=== PATIENT | male | born 1940 | race Caucasian/White ===

== ENCOUNTER → 2017-05-05 | Outpatient (CLI) | payer MEDICARE, BC, OTHER ==
[2017-05-05 10:39] LABS: ALANINE AMINOTRANSFERASE 25 U/L (21-72); ALBUMIN 4.1 g/dL (3.5-5.0); ALKALINE PHOSPHATASE 78 U/L (38-126); ASPARTATE AMINO TRANSFERASE 20 U/L (17-59); BILIRUBIN,DIRECT 0.4 mg/dL (0.0-0.4); BILIRUBIN,TOTAL 0.8 mg/dL (0.2-1.3); CHOLESTEROL 156.56 mg/dL (0-200); Direct HDL 46 mg/dL (>40); TOTAL PROTEIN 6.5 g/dL (6.3-8.2); TRIGLYCERIDES 131 mg/dL (<150)
[2017-05-05 10:50] LABS: DIRECT LDL 88 mg/dL (<100)
== END ==
LOC: OD 09:32
PROVIDERS: ATTEND Specialist
DX: E11.9 Type 2 diabetes mellitus without complications (principal); E78.4 Other hyperlipidemia; I25.10 Atherosclerotic heart disease of native coronary artery without angina pectoris; I10 Essential (primary) hypertension; I34.1 Nonrheumatic mitral (valve) prolapse; I35.1 Nonrheumatic aortic (valve) insufficiency; I36.1 Nonrheumatic tricuspid (valve) insufficiency; I73.9 Peripheral vascular disease, unspecified; G47.30 Sleep apnea, unspecified; R09.89 Other specified symptoms and signs involving the circulatory and respiratory systems; Z79.899 Other long term (current) drug therapy
CPT/HCPCS: 36415; 80061; 80076; 83036

== ENCOUNTER → 2017-07-21 | Outpatient (CLI) | payer MEDICARE, BC, OTHER | LOC: SP 13:09 | PROVIDERS: ATTEND Specialist | DX: I25.10 Atherosclerotic heart disease of native coronary artery without angina pectoris (principal) | CPT/HCPCS: 93306 ==

== ENCOUNTER → 2017-08-03 | Outpatient (CLI) | payer MEDICARE, BC, OTHER ==
[~2017-08-03] MED LIST: REGADENOSON INJ 0.4 MG/5 ML DISP.SYRIN IV ONE
--- NOTE | 2017-08-06 14:20 | DRAGON STRESS TEST REPORT ---
Intravenous Lexiscan Cardiolite stress test using single photon emmision computerized tomography. Date of procedure: 08/03/2017. Ordering Provider: Dr. Talita Hung. Patient's status: Out Patient Indication: Coronary artery disease by history.. Coronary risk factors: Age, diabetes mellitus, hypertension, and dyslipidemia. Resting EKG: Sinus Rhythm. No acute changes. Stress EKG: No changes of ischemia. Reason for termination: Protocol. Conclusions: Normal EKG and hemodynamic response to IV Lexiscan. Nuclear data: At rest the patient was given 14.38 millicuries of technetium 99m sestamibi injected intravenously. As per protocol rest non gated SPECT images were obtained. Subsequently the patient was given intravenous Lexiscan at a dose of 0.4 mg in 5 mL intravenously, followed by flush with normal saline. Subsequently the stress dose of 42.0 millicuries of technetium 99m sestamibi was injected intravenously. As per protocol stress gated images were obtained. Nuclear interpretation: Review of images showed that there was a perfusion defect in both the stress and rest images involving the basal inferior wall. This area had normal motion contraction and thickening by gated study hence this is deemed to be soft tissue attenuation artifact of the basal inferior wall. The rest of the segments of the myocardium had normal perfusion at rest, and normal perfusion post stress with IV Lexiscan. All segments of the myocardium had normal motion, contraction, and thickening by gated study. T. I D. ratio was normal at 1.18. Computer read rest, and stress left ventricular ejection fraction were 64 %, and 62 %, respectively. Conclusion: 1. There is no scintigraphic evidence of Lexiscan induced myocardial ischemia. 2. There is no scintigraphic evidence of myocardial infarction/scar. 3. There is soft tissue attenuation artifact involving the basal inferior wall. Recommendations: Aggressive risk factor modification, and treating the underlying co- morbidities. MTDD
== END ==
LOC: RAD 07:16 → MERGE 07:45
PROVIDERS: ATTEND Specialist
DX: I25.10 Atherosclerotic heart disease of native coronary artery without angina pectoris (principal)
CPT/HCPCS: 93017; 78452; A9500; J2785; Q9969

== ENCOUNTER 2018-02-20 10:22 | Inpatient (IN) | payer MEDICARE, BC, OTHER ==
[2018-02-20 12:20] LABS: HEMATOCRIT 40.1 % (37.9-51.0); HEMOGLOBIN 13.4 g/dL (13.5-17.0); MEAN CORPUSCULAR HEMOGLOBIN 30.9 pg (27.0-33.4); MEAN CORPUSCULAR HGB CONC 33.5 g/dL (32.0-36.0); MEAN CORPUSCULAR VOLUME 92 fl (80-97); PLATELET COUNT 188 10^3/uL (150-450); RED BLOOD COUNT 4.34 10^6/uL (4.35-5.55); RED CELL DISTRIBUTION WIDTH 14.8 % (11.5-14.0)
[2018-02-20] MEDS ORDERED: DEXTROSE 40% GEL 15 GM TUBE ONE (12:38)
[2018-02-20 12:48] LABS: ALANINE AMINOTRANSFERASE 29 U/L (21-72); ALBUMIN 3.7 g/dL (3.5-5.0); ALKALINE PHOSPHATASE 54 U/L (38-126); ANION GAP 12 (5-19); ASPARTATE AMINO TRANSFERASE 31 U/L (17-59); BILIRUBIN,DIRECT 0.4 mg/dL (0.0-0.4); BILIRUBIN,TOTAL 0.8 mg/dL (0.2-1.3); BLOOD UREA NITROGEN 47 mg/dL (7-20); CALCIUM 8.6 mg/dL (8.4-10.2); CARBON DIOXIDE 26 mmol/L (22-30); CHLORIDE 97 mmol/L (98-107); GLUCOSE 70 mg/dL (75-110); POTASSIUM 4.3 mmol/L (3.6-5.0); SODIUM 134.7 mmol/L (137-145); TOTAL PROTEIN 6.5 g/dL (6.3-8.2)
--- NOTE | 2018-02-20 13:32 | RADIOLOGY REPORT (SQ) ---
EXAM DESCRIPTION: CT ABD/PELVIS NO ORAL OR IV COMPLETED DATE/TIME: 02/20/2018 1:08 pm REASON FOR STUDY: FEVER,DM COMPARISON: None. TECHNIQUE: CT scan of the abdomen and pelvis performed without intravenous or oral contrast. Images reviewed with lung, soft tissue, and bone windows. Reconstructed coronal and sagittal MPR images revi ewed. All images stored on PACS. All CT scanners at this facility use dose modulation, iterative reconstruction, and/or weight based d osing when appropriate to reduce radiation dose to as low as reasonably achievable (ALARA). [facility]: Dose Right [facility]: CareDose [facility]: Dose Right [facility]: Teradose 4D [facility]: Smart [employer] RADIATION DOSE: CT Rad equipment meets quality standard of care and radiation dose reduction techniq ues were employed. CTDIvol: 12.3 mGy. DLP: 682 mGy-cm.mGy. LIMITATIONS: None. FINDINGS: LOWER CHEST: Segmental airspace disease in the right middle lobe. Cardiomegaly. Hiatal h ernia. NON-CONTRASTED LIVER, SPLEEN, ADRENALS: Evaluation limited by lack of IV contrast. No identified sign ificant masses. PANCREAS: No masses. No peripancreatic inflammatory changes. GALLBLADDER: Surgically absent. RIGHT KIDNEY AND URETER: No suspicious masses. Assessment limited by lack of IV contrast. No signif icant calcifications. No hydronephrosis or hydroureter. LEFT KIDNEY AND URETER: No suspicious masses. Assessment limited by lack of IV contrast. No signifi cant calcifications. No hydronephrosis or hydroureter. AORTA AND RETROPERITONEUM: No aneurysm. No retroperitoneal masses or adenopathy. BOWEL AND PERITONEAL CAVITY: Diverticulosis descending and sigmoid colon. No obvious masses or infla mmatory changes. No free fluid. APPENDIX: Normal. PELVIS, BLADDER, AND ABDOMINAL WALL:No abnormal masses. No free fluid. Bladder normal. BONES: No acute findings. OTHER: No other significant finding. IMPRESSION: 1. No acute findings in the abdomen or pelvis 2. Right middle lobe pneumonia. COMMENT: Quality ID # [id number]: Final reports with documentation of one or more dose reduction techniques (e.g., Automated exposure control, adjustment of the mA and/or kV according to patient size, use of iterative reconstruction technique) TECHNICAL DOCUMENTATION: JOB ID: [id number]- All Rights Reserved Reading location - IP/workstation name: [email or web address]
[2018-02-20] MEDS: LEVOFLOXACIN 750 MG/D5W RTU 750 MG/150 ML RTUPB IV SCH (13:40)
--- NOTE | 2018-02-20 13:50 | RADIOLOGY REPORT (SQ) ---
EXAM DESCRIPTION: CHEST 2 VIEWS COMPLETED DATE/TIME: 02/20/2018 1:25 pm REASON FOR STUDY: FEVER,DM COMPARISON: 08/13/2018 EXAM PARAMETERS: NUMBER OF VIEWS: two views TECHNIQUE: Digital Frontal and Lateral radiographic views of the chest acquired. RADIATION DOSE: NA LIMITATIONS: none FINDINGS: LUNGS AND PLEURA: Patchy airspace disease in the right upper lobe, adjacent and superior to the fissure. Considerations for this finding includes pneumonic infiltrate. Minimal left base sc ar atelectasis. No pneumothorax or pleural effusion. MEDIASTINUM AND HILAR STRUCTURES: No masses or contour abnormalities. HEART AND VASCULAR STRUCTURES: Heart normal size. No evidence for failure. BONES: No acute findings. HARDWARE: None in the chest. OTHER: No other significant finding. IMPRESSION: 1 Patchy airspace disease in the right upper lobe, suggest pneumonic infiltrate. Correl ation and follow-up examination to document for interval resolution. TECHNICAL DOCUMENTATION: JOB ID: [id number] [employer]- All Rights Reserved Reading location - IP/workstation name: [email or web address]
[2018-02-20 13:59] LABS: APPEARANCE,URINE SLIGHTLY-CLOUDY; BILIRUBIN,URINE NEGATIVE (NEGATIVE); COLOR,URINE YELLOW; GLUCOSE, URINE NEGATIVE (NEGATIVE); KETONES,URINE NEGATIVE (NEGATIVE); LEUKOCYTE ESTERASE,URINE NEGATIVE (NEGATIVE); NITRITE,URINE NEGATIVE (NEGATIVE); PROTEIN,URINE 30 mg/dL (NEGATIVE); URINE SPECIFIC GRAVITY 1.021
[2018-02-20] MEDS ORDERED: MICARDIS HCT PO SCH (16:15)
[2018-02-20] MEDS: ACETAMINOPHEN 325 MG TABLET PO PRN (16:43)
[2018-02-20] MEDS ORDERED: NORMAL SALINE 1000 ML 1,000 ML IV PRN ×2 (16:56→19:12)
[2018-02-20] MEDS ORDERED: METFORMIN HCL PO SCH (17:00)
[2018-02-20] MEDS ORDERED: GLYBURIDE PO SCH (17:00)
[2018-02-20] MEDS: MONTELUKAST SODIUM 10 MG TABLET PO SCH (17:22)
[2018-02-20] MEDS: METFORMIN HCL 500 MG TABLET PO SCH (17:22)
[2018-02-20] MEDS: GLYBURIDE 2.5 MG TABLET PO SCH (17:22)
[2018-02-20] MEDS ORDERED: ALLOPURINOL 300 MG TABLET PO ONE (17:30)
[2018-02-20] MEDS ORDERED: LOSARTAN POTASSIUM 50 MG TABLET PO ONE (17:30)
[2018-02-20] MEDS ORDERED: ASPIRIN 81 MG TABLET, CHEWABLE PO ONE (17:30)
[2018-02-20] MEDS ORDERED: PIOGLITAZONE HCL 15 MG TABLET PO ONE (17:30)
[2018-02-20] MEDS ORDERED: HYDROCHLOROTHIAZIDE 12.5 MG CAPSULE PO ONE (17:30)
[2018-02-20 18:49] LABS: ARTERIAL BLOOD BASE EXCESS 1.9 mmol/L; ARTERIAL BLOOD H2CO3 0.92 mmol/L (1.05-1.35); ARTERIAL BLOOD HCO3 24.1 mmol/L (20-26); ARTERIAL BLOOD O2 SATURATION 94.8 % (94-98); ARTERIAL BLOOD PCO2 30.5 mmHg (35-45); ARTERIAL BLOOD PH 7.52 (7.35-7.45); ARTERIAL BLOOD PO2 65.1 mmHg (80-100)
[2018-02-20 18:50] LABS: ARTERIAL BLOOD FIO2 ROOM AIR
--- NOTE | 2018-02-20 19:15 | PDOC H&P ---
History of Present Illness Admission Date/PCP: 02/20/18 10:25 ROSAURA CHAMBERLAIN MD History of Present Illness: TEO BUTLER is a 77 year old male, He has a history of type 2 diabetes mellitus he came to the office this morning with his daughter which is very unusual, he normally come to the office by himself for follow-up, he came for evaluation of malaise, fever, confusion, the daughter stated he had his symptoms for the last 6-7 days, he has not been eating nor drinking, in the office he was evaluated he was found to be febrile with 101 temperature, because of his age and also risk factors, he was admitted directly from the office to the hospital for further evaluation. A chest x-ray was done it showed patchy airspace disease in the right upper lobe, adjacent and superior to the fissure suggestive of pneumonia he has a dry cough, when he came to the office he had a fever with 101 temperature, it was apparent that he has an infection but the source was not clear part of the evaluation also included a CAT scan of the abdomen and pelvis without contrast no acute intra-abdominal pathology was found but showed patchy airspace disease in the right middle lobe consistent with pneumonia. He also show acute kidney injury, serum creatinine is 1.5 patientI have no chronic kidney disease. The CRP was 165 consistent with acute inhibitory response the arterial blood gas on room air showed pH 7.5 , PCO2 30.5, PO2 65 this is consistent with respiratory alkalosis Past Medical History Cardiac Medical History: Reports: Hyperlipidema, Hypertension Endocrine Medical History: Reports: Diabetes Mellitus Type 2 Social History Smoking Status: Never Smoker Frequency of Alcohol Use: None Hx Recreational Drug Use: No Drugs: None Hx Prescription Drug Abuse: No Family History Family History: Reviewed & Not Pertinent Parental Family History Reviewed: Yes Children Family History Reviewed: Yes Sibling(s) Family History Reviewed.: Yes Medication/Allergy Home Medications: Allopurinol [Zyloprim 300 mg Tablet] 300 mg PO DAILY 02/20/18 Aspirin [Aspirin 81 mg Chewable Tablet] 81 mg PO DAILY 02/20/18 Atorvastatin Calcium [Lipitor 80 mg Tablet] 80 mg PO QHS 02/20/18 Carvedilol [Coreg 25 mg Tablet] 25 mg PO Q12 02/20/18 Glyburide/Metformin HCl [Glyburide-Metformin 2.5-500 mg] 1 tab PO WSUPPER 06/18/ 18 Micardis Hct 80-12.5mg 1 tab PO DAILY 02/20/18 Montelukast Sodium [Singulair 10 mg Tablet] 10 mg PO QPM 02/20/18 Pantoprazole Sodium [Protonix] 40 mg PO DAILY 02/20/18 Pioglitazone HCl [Actos 15 mg Tablet] 15 mg PO DAILY 02/20/18 Allergies/Adverse Reactions: No Known Allergies Allergy (Verified 08/13/14 19:08) Review of Systems Constitutional: PRESENT: fever(s) Eyes: ABSENT: visual disturbances Ears: ABSENT: hearing changes Cardiovascular: ABSENT: chest pain, dyspnea on exertion, edema, orthropnea, palpitations Respiratory: ABSENT: cough, hemoptysis Gastrointestinal: ABSENT: abdominal pain, constipation, diarrhea, hematemesis, hematochezia, nausea, vomiting Genitourinary: ABSENT: dysuria, hematuria Musculoskeletal: ABSENT: joint swelling Integumentary: ABSENT: rash, wounds Neurological: PRESENT: confusion. ABSENT: abnormal gait, abnormal speech, dizziness, focal weakness, syncope Psychiatric: ABSENT: anxiety, depression, homidical ideation, suicidal ideation Endocrine: ABSENT: cold intolerance, heat intolerance, menstrual abnormalities, polydipsia, polyuria Hematologic/Lymphatic: ABSENT: easy bleeding, easy bruising, lymphadenopathy Physical Exam Vital Signs: Temp Pulse Resp BP Pulse Ox 99.7 F 61 18 124/50 L 92 02/20/18 18:12 02/20/18 16:13 02/20/18 16:13 02/20/18 16:13 02/20/18 16:13 Intake & Output 02/19/18 02/20/18 02/21/18 06:59 06:59 06:59 Intake Total 1066 Output Total 200 Balance 866 Weight 91.3 kg General appearance: PRESENT: mild distress Head exam: PRESENT: atraumatic, normocephalic Eye exam: PRESENT: conjunctiva pink, EOMI, PERRLA Ear exam: PRESENT: normal external ear exam Mouth exam: PRESENT: moist, tongue midline Neck exam: PRESENT: full ROM Respiratory exam: PRESENT: rhonchi Cardiovascular exam: PRESENT: RRR, +S1, +S2 Vascular exam: PRESENT: normal capillary refill GI/Abdominal exam: PRESENT: normal bowel sounds, soft Rectal exam: PRESENT: deferred Neurological exam: PRESENT: alert, awake, oriented to person, oriented to place , oriented to time, oriented to situation, CN II-XII grossly intact Psychiatric exam: PRESENT: appropriate affect, normal mood Skin exam: PRESENT: dry, intact, warm. ABSENT: cyanosis, rash Results Laboratory Results: 02/20/18 11:26 02/20/18 11:26 02/20/18 02/20/18 02/20/18 11:26 11:26 13:26 WBC 8.0 RBC 4.34 L Hgb 13.4 L Hct 40.1 MCV 92 MCH 30.9 MCHC 33.5 RDW 14.8 H Plt Count 188 Carbonic Acid HCO3/H2CO3 Ratio ABG pH ABG pCO2 ABG pO2 ABG HCO3 ABG O2 Saturation ABG Base Excess FiO2 Sodium 134.7 L Potassium 4.3 Chloride 97 L Carbon Dioxide 26 Anion Gap 12 BUN 47 H Creatinine 1.52 H Est GFR ( Amer) 54 L Est GFR (Non-Af Amer) 45 L Glucose 70 L Calcium 8.6 Total Bilirubin 0.8 AST 31 ALT 29 Alkaline Phosphatase 54 C-Reactive Protein Total Protein 6.5 Albumin 3.7 Urine Color YELLOW Urine Appearance SLIGHTLY-CLOUDY Urine pH 5.0 Ur Specific [place] 1.021 Urine Protein 30 H Urine Glucose (UA) NEGATIVE Urine Ketones NEGATIVE Urine Blood NEGATIVE Urine Nitrite NEGATIVE Ur Leukocyte Esterase NEGATIVE Urine WBC (Auto) 1 Urine RBC (Auto) 2 02/20/18 02/20/18 16:40 18:20 WBC RBC Hgb Hct MCV MCH MCHC RDW Plt Count Carbonic Acid 0.92 L HCO3/H2CO3 Ratio 26:1 ABG pH 7.52 H ABG pCO2 30.5 L ABG pO2 65.1 L ABG HCO3 24.1 ABG O2 Saturation 94.8 ABG Base Excess 1.9 FiO2 ROOM AIR Sodium Potassium Chloride Carbon Dioxide Anion Gap BUN Creatinine Est GFR ( Amer) Est GFR (Non-Af Amer) Glucose Calcium Total Bilirubin AST ALT Alkaline Phosphatase C-Reactive Protein 165.6 H Total Protein Albumin Urine Color Urine Appearance Urine pH Ur Specific [place] Urine Protein Urine Glucose (UA) Urine Ketones Urine Blood Urine Nitrite Ur Leukocyte Esterase Urine WBC (Auto) Urine RBC (Auto) Impressions: Abdomen/Pelvis CT 02/20/18 00:00 IMPRESSION: 1. No acute findings in the abdomen or pelvis 2. Right middle lobe pneumonia. Chest X-Ray 02/20/18 00:00 IMPRESSION: 1 Patchy airspace disease in the right upper lobe, suggest pneumonic infiltrate. Correlation and follow-up examination to document for interval resolution. Assessment & Plan - Diagnosis (1) Right middle lobe pneumonia Qualifiers: Pneumonia type: due to unspecified organism Qualified Code(s): J18.1 - Lobar pneumonia, unspecified organism Is this a current diagnosis for this admission?: Yes Plan: Patient is admitted, started empirically on IV antibiotic to cover community- acquired pathogens, start IV Levaquin and cefepime (2) Acute kidney injury Is this a current diagnosis for this admission?: Yes Plan: The acute kidney injury he is most likely related to sepsis/prerenal azotemia, start IV fluid,The CAT scan that was done did not show any hydronephrosis to suggest post renal etiology (3) Metabolic encephalopathy Is this a current diagnosis for this admission?: Yes (4) Respiratory alkalosis Is this a current diagnosis for this admission?: Yes Plan: He has respiratory alkalosis due to hyperventilation because of pneumonia with relative hypoxemia (5) Sepsis Qualifiers: Sepsis type: sepsis due to unspecified organism Qualified Code(s): A41.9 - Sepsis, unspecified organism Is this a current diagnosis for this admission?: Yes (6) Type 2 diabetes mellitus Qualifiers: Diabetes mellitus correction insulin use: without correction use Diabetes mellitus complication status: with unspecified complications Qualified Code(s) : E11.8 - Type 2 diabetes mellitus with unspecified complications Is this a current diagnosis for this admission?: Yes
[2018-02-20 19:53] LABS: CREATINE KINASE MB 0.31 ng/mL (<4.55)
[2018-02-20 19:59] LABS: TROPONIN I 0.013 ng/mL
[2018-02-20] MEDS: CEFEPIME 2 GM/D5W RTU 2 GM/50 ML RTUPB IV SCH (21:16)
[2018-02-20] MEDS: CARVEDILOL 12.5 MG TABLET PO SCH (21:19)
[2018-02-20] MEDS: ATORVASTATIN CALCIUM 80 MG TABLET PO SCH (21:19)
[2018-02-20] MEDS: HEPARIN SOD (PORCINE) 5,000 UNIT/ML 1 ML SYRINGE SUBCUT SCH (21:21)
--- NOTE | 2018-02-20 22:15 | EKG REPORT ---
SEVERITY:- NORMAL ECG - SINUS RHYTHM : Confirmed by: Autumn Alston 20-Feb-2018 22:14:23
[2018-02-21] MEDS: NORMAL SALINE 1000 ML 1,000 ML IV PRN (04:41)
[2018-02-21] MEDS: ACETAMINOPHEN 325 MG TABLET PO PRN (04:44)
[2018-02-21] MEDS: LANSOPRAZOLE 30 MG TAB.RAP.DR PO SCH (05:01)
[2018-02-21] MEDS: HEPARIN SOD (PORCINE) 5,000 UNIT/ML 1 ML SYRINGE SUBCUT SCH ×3 (05:01→21:18)
[2018-02-21 07:16] LABS: ABSOLUTE LYMPHOCYTES (AUTO) 0.9 10^3/uL (0.5-4.7); ABSOLUTE MONOCYTES (AUTO) 0.9 10^3/uL (0.1-1.4); ABSOLUTE NEUT (AUTO) 4.8 10^3/uL (1.7-8.2); BASOPHILS % (AUTO) 0.4 % (0-2); HEMATOCRIT 34.8 % (37.9-51.0); HEMOGLOBIN 11.7 g/dL (13.5-17.0); LYMPHOCYTES % (AUTO) 13.4 % (13-45); MEAN CORPUSCULAR HGB CONC 33.7 g/dL (32.0-36.0); MEAN CORPUSCULAR VOLUME 92 fl (80-97); MONOCYTES % (AUTO) 13.8 % (3-13); PLATELET COUNT 170 10^3/uL (150-450); RED BLOOD COUNT 3.78 10^6/uL (4.35-5.55); RED CELL DISTRIBUTION WIDTH 14.7 % (11.5-14.0); SEGMENTED NEUTROPHILS % (AUTO) 72.4 % (42-78); TOTAL CELLS COUNTED % (AUTO) 100 %; WHITE BLOOD COUNT 6.6 10^3/uL (4.0-10.5)
[2018-02-21 07:37] LABS: ALANINE AMINOTRANSFERASE 38 U/L (21-72); ALKALINE PHOSPHATASE 49 U/L (38-126); ANION GAP 10 (5-19); ASPARTATE AMINO TRANSFERASE 43 U/L (17-59); BILIRUBIN,DIRECT 0.5 mg/dL (0.0-0.4); BILIRUBIN,TOTAL 0.7 mg/dL (0.2-1.3); BLOOD UREA NITROGEN 36 mg/dL (7-20); CARBON DIOXIDE 22 mmol/L (22-30); CHLORIDE 103 mmol/L (98-107); GLUCOSE 66 mg/dL (75-110); POTASSIUM 4.1 mmol/L (3.6-5.0); SODIUM 135.4 mmol/L (137-145); TOTAL PROTEIN 5.6 g/dL (6.3-8.2)
[2018-02-21] MEDS ORDERED: DEXTROSE 40% GEL 15 GM TUBE ONE (07:53)
[2018-02-21] MEDS ORDERED: GLUCAGON,HUMAN RECOMB 1 MG INJ IM PRN (08:22)
[2018-02-21] MEDS ORDERED: DEXTROSE 50%-WATER SYRINGE 25 GM/50 ML DOSE IV PRN (08:22)
[2018-02-21] MEDS ORDERED: DEXTROSE 40% GEL 15 GM TUBE PO PRN (08:22)
[2018-02-21] MEDS ORDERED: DEXTROSE 50%-WATER SYRINGE 12.5 GM/25 ML DOSE IV PRN (08:22)
[2018-02-21] MEDS ORDERED: DEXTROSE 40% GEL 15 GM TUBE X 2 PO PRN (08:22)
[2018-02-21] MEDS: PIOGLITAZONE HCL 15 MG TABLET PO SCH (08:56)
[2018-02-21] MEDS: LOSARTAN POTASSIUM 50 MG TABLET PO SCH (09:07)
[2018-02-21] MEDS: CARVEDILOL 12.5 MG TABLET PO SCH ×2 (09:07→21:17)
[2018-02-21] MEDS: ALLOPURINOL 300 MG TABLET PO SCH (09:17)
[2018-02-21] MEDS: ASPIRIN 81 MG TABLET, CHEWABLE PO SCH (09:18)
[2018-02-21] MEDS: CEFEPIME 2 GM/D5W RTU 2 GM/50 ML RTUPB IV SCH ×2 (09:18→21:12)
[2018-02-21] MEDS ORDERED: HYDROCHLOROTHIAZIDE 12.5 MG CAPSULE PO SCH (10:00)
[2018-02-21 10:01] LABS: APPEARANCE,URINE CLEAR; BILIRUBIN,URINE NEGATIVE (NEGATIVE); COLOR,URINE YELLOW; GLUCOSE, URINE NEGATIVE (NEGATIVE); KETONES,URINE NEGATIVE (NEGATIVE); LEUKOCYTE ESTERASE,URINE NEGATIVE (NEGATIVE); NITRITE,URINE NEGATIVE (NEGATIVE); PROTEIN,URINE NEGATIVE (NEGATIVE); URINE SPECIFIC GRAVITY 1.009; UROBILINOGEN,URINE NEGATIVE mg/dL (<2.0)
[2018-02-21] MEDS: LEVOFLOXACIN 750 MG/D5W RTU 750 MG/150 ML RTUPB IV SCH (13:20)
[2018-02-21] MEDS: GLYBURIDE 2.5 MG TABLET PO SCH (18:09)
[2018-02-21] MEDS: METFORMIN HCL 500 MG TABLET PO SCH (18:10)
[2018-02-21] MEDS: MONTELUKAST SODIUM 10 MG TABLET PO SCH (18:10)
[2018-02-21] MEDS: ATORVASTATIN CALCIUM 80 MG TABLET PO SCH (21:16)
--- NOTE | 2018-02-21 21:48 | PDOC PROGRESS REPORT ---
Subjective Progress Note for:: 02/21/18 Subjective:: Patient is improving with treatment,he was admitted for evaluation of pneumonia Reason For Visit: DIRECT ADMIT Physical Exam Vital Signs: Temp Pulse Resp BP Pulse Ox 98.5 F 59 L 16 110/49 L 100 02/21/18 20:04 02/21/18 20:04 02/21/18 20:04 02/21/18 20:04 02/21/18 20:04 Intake & Output 02/20/18 02/21/18 02/22/18 06:59 06:59 06:59 Intake Total 3753 2370 Output Total 200 450 Balance 3553 1920 Weight 93.9 kg General appearance: PRESENT: no acute distress Head exam: PRESENT: atraumatic, normocephalic Eye exam: PRESENT: PERRLA Ear exam: PRESENT: normal external ear exam Mouth exam: PRESENT: moist, tongue midline Neck exam: PRESENT: full ROM Respiratory exam: PRESENT: clear to auscultation carina Cardiovascular exam: PRESENT: RRR, +S1, +S2 Pulses: PRESENT: normal dorsalis pedis pul, +2 pedal pulses bilateral Vascular exam: PRESENT: normal capillary refill GI/Abdominal exam: PRESENT: normal bowel sounds, soft Rectal exam: PRESENT: deferred Neurological exam: PRESENT: alert, awake, oriented to person, oriented to place , oriented to time, oriented to situation, CN II-XII grossly intact Psychiatric exam: PRESENT: appropriate affect, normal mood Skin exam: PRESENT: dry, intact, warm Results Laboratory Results: 02/21/18 06:35 02/21/18 06:35 02/21/18 02/21/18 02/21/18 06:35 06:35 09:25 WBC 6.6 RBC 3.78 L Hgb 11.7 L Hct 34.8 L MCV 92 MCH 31.0 MCHC 33.7 RDW 14.7 H Plt Count 170 Seg Neutrophils % 72.4 Lymphocytes % 13.4 Monocytes % 13.8 H Eosinophils % 0.0 Basophils % 0.4 Absolute Neutrophils 4.8 Absolute Lymphocytes 0.9 Absolute Monocytes 0.9 Absolute Eosinophils 0.0 Absolute Basophils 0.0 Sodium 135.4 L Potassium 4.1 Chloride 103 Carbon Dioxide 22 Anion Gap 10 BUN 36 H Creatinine 1.12 Est GFR ( Amer) > 60 Est GFR (Non-Af Amer) > 60 Glucose 66 L Calcium 8.0 L Total Bilirubin 0.7 AST 43 ALT 38 Alkaline Phosphatase 49 Total Protein 5.6 L Albumin 3.0 L Urine Color YELLOW Urine Appearance CLEAR Urine pH 5.0 Ur Specific [place] 1.009 Urine Protein NEGATIVE Urine Glucose (UA) NEGATIVE Urine Ketones NEGATIVE Urine Blood NEGATIVE Urine Nitrite NEGATIVE Ur Leukocyte Esterase NEGATIVE Urine WBC (Auto) 1 Urine RBC (Auto) 0 02/20/18 13:26 Clean Catch Midstream Urine Culture - Final 6,000 col/ml 02/20/18 02/20/18 16:40 16:40 Creatine Kinase 61 CK-MB (CK-2) 0.31 Troponin I 0.013 NT-Pro-B Natriuret Pep 506 H Impressions: Abdomen/Pelvis CT 02/20/18 00:00 IMPRESSION: 1. No acute findings in the abdomen or pelvis 2. Right middle lobe pneumonia. Chest X-Ray 02/20/18 00:00 IMPRESSION: 1 Patchy airspace disease in the right upper lobe, suggest pneumonic infiltrate. Correlation and follow-up examination to document for interval resolution. Assessment & Plan - Diagnosis (1) Right middle lobe pneumonia Qualifiers: Pneumonia type: due to unspecified organism Qualified Code(s): J18.1 - Lobar pneumonia, unspecified organism Is this a current diagnosis for this admission?: Yes (2) Acute kidney injury Is this a current diagnosis for this admission?: Yes (3) Metabolic encephalopathy Is this a current diagnosis for this admission?: Yes (4) Respiratory alkalosis Is this a current diagnosis for this admission?: Yes (5) Sepsis Qualifiers: Sepsis type: sepsis due to unspecified organism Qualified Code(s): A41.9 - Sepsis, unspecified organism Is this a current diagnosis for this admission?: Yes (6) Type 2 diabetes mellitus 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
[2018-02-22] MEDS: NORMAL SALINE 1000 ML 1,000 ML IV PRN (03:40)
[2018-02-22 05:22] LABS: ABSOLUTE EOSINOPHILS # (AUTO) 0.1 10^3/uL (0.0-0.6); ABSOLUTE LYMPHOCYTES (AUTO) 1.1 10^3/uL (0.5-4.7); ABSOLUTE MONOCYTES (AUTO) 0.8 10^3/uL (0.1-1.4); ABSOLUTE NEUT (AUTO) 3.9 10^3/uL (1.7-8.2); BASOPHILS % (AUTO) 0.6 % (0-2); EOSINOPHILS % (AUTO) 1.3 % (0-6); HEMATOCRIT 33.6 % (37.9-51.0); HEMOGLOBIN 11.4 g/dL (13.5-17.0); LYMPHOCYTES % (AUTO) 19.2 % (13-45); MEAN CORPUSCULAR HEMOGLOBIN 31.1 pg (27.0-33.4); MEAN CORPUSCULAR VOLUME 91 fl (80-97); MONOCYTES % (AUTO) 13.8 % (3-13); PLATELET COUNT 206 10^3/uL (150-450); RED BLOOD COUNT 3.68 10^6/uL (4.35-5.55); RED CELL DISTRIBUTION WIDTH 14.8 % (11.5-14.0); SEGMENTED NEUTROPHILS % (AUTO) 65.1 % (42-78); TOTAL CELLS COUNTED % (AUTO) 100 %; WHITE BLOOD COUNT 5.9 10^3/uL (4.0-10.5)
[2018-02-22] MEDS: LANSOPRAZOLE 30 MG TAB.RAP.DR PO SCH (05:45)
[2018-02-22] MEDS: HEPARIN SOD (PORCINE) 5,000 UNIT/ML 1 ML SYRINGE SUBCUT SCH ×2 (05:45→14:08)
[2018-02-22 05:48] LABS: ALANINE AMINOTRANSFERASE 40 U/L (21-72); ALBUMIN 2.8 g/dL (3.5-5.0); ALKALINE PHOSPHATASE 61 U/L (38-126); ANION GAP 10 (5-19); ASPARTATE AMINO TRANSFERASE 44 U/L (17-59); BILIRUBIN,DIRECT 0.5 mg/dL (0.0-0.4); BILIRUBIN,TOTAL 0.5 mg/dL (0.2-1.3); BLOOD UREA NITROGEN 29 mg/dL (7-20); CARBON DIOXIDE 22 mmol/L (22-30); CHLORIDE 107 mmol/L (98-107); GLUCOSE 46 mg/dL (75-110); POTASSIUM 3.6 mmol/L (3.6-5.0); SODIUM 138.7 mmol/L (137-145); TOTAL PROTEIN 5.2 g/dL (6.3-8.2)
[2018-02-22] MEDS: ALLOPURINOL 300 MG TABLET PO SCH (09:51)
[2018-02-22] MEDS: PIOGLITAZONE HCL 15 MG TABLET PO SCH (09:51)
[2018-02-22] MEDS: ASPIRIN 81 MG TABLET, CHEWABLE PO SCH (09:51)
[2018-02-22] MEDS: CARVEDILOL 12.5 MG TABLET PO SCH (09:52)
[2018-02-22] MEDS: LOSARTAN POTASSIUM 50 MG TABLET PO SCH (09:52)
[2018-02-22] MEDS: CEFEPIME 2 GM/D5W RTU 2 GM/50 ML RTUPB IV SCH (09:58)
[2018-02-22 11:45] VITALS: BP 114/45
[2018-02-22] MEDS ORDERED: LEVOFLOXACIN 750 MG TABLET PO SCH (14:00)
--- NOTE | 2018-02-22 14:48 | PDOC DISCHARGE SUMMARY ---
General - Admit/Disc Date/PCP Admission Date/Primary Care Provider: 02/20/18 10:25 ROSAURA CHAMBERLAIN MD Discharge Date: 02/22/18 - Discharge Diagnosis (1) Right middle lobe pneumonia Is this a current diagnosis for this admission?: Yes (2) Acute kidney injury Is this a current diagnosis for this admission?: Yes (3) Metabolic encephalopathy Is this a current diagnosis for this admission?: Yes (4) Respiratory alkalosis Is this a current diagnosis for this admission?: Yes (5) Sepsis Is this a current diagnosis for this admission?: Yes (6) Type 2 diabetes mellitus Is this a current diagnosis for this admission?: Yes - Additional Information Prescriptions: Acetaminophen [Tylenol 325 mg Tablet] 650 mg PO Q4HP PRN #90 tablet PRN Reason: Levofloxacin [Levaquin 750 mg Tablet] 750 mg PO DAILY@1400 #5 tablet Home Medications: Allopurinol [Zyloprim 300 mg Tablet] 300 mg PO DAILY 02/20/18 Aspirin [Aspirin 81 mg Chewable Tablet] 81 mg PO DAILY 02/20/18 Atorvastatin Calcium [Lipitor 80 mg Tablet] 80 mg PO QHS 02/20/18 Carvedilol [Coreg 25 mg Tablet] 25 mg PO Q12 02/20/18 Glyburide/Metformin HCl [Glyburide-Metformin 2.5-500 mg] 1 tab PO WSUPPER Micardis Hct 80-12.5mg 1 tab PO DAILY 02/20/18 Montelukast Sodium [Singulair 10 mg Tablet] 10 mg PO QPM 02/20/18 Pantoprazole Sodium [Protonix] 40 mg PO DAILY 02/20/18 Pioglitazone HCl [Actos 15 mg Tablet] 15 mg PO DAILY 02/20/18 Acetaminophen [Tylenol 325 mg Tablet] 650 mg PO Q4HP PRN #90 tablet 02/22/18 Levofloxacin [Levaquin 750 mg Tablet] 750 mg PO DAILY@1400 #5 tablet 02/22/18 Normal Saline [Saline Flush 2.5 ml Monoject Prefil Syrin] 2.5 ml IV Q8 disp.syrin 02/22/18 History of Present Illness History of Present Illness: TEO BUTLER is a 77 year old male, He has a history of type 2 diabetes mellitus he came to the office this morning with his daughter which is very unusual, he normally come to the office by himself for follow-up, he came for evaluation of malaise, fever, confusion, the daughter stated he had his symptoms for the last 6-7 days, he has not been eating nor drinking, in the office he was evaluated he was found to be febrile with 101 temperature, because of his age and also risk factors, he was admitted directly from the office to the hospital for further evaluation. A chest x-ray was done it showed patchy airspace disease in the right upper lobe, adjacent and superior to the fissure suggestive of pneumonia he has a dry cough, when he came to the office he had a fever with 101 temperature, it was apparent that he has an infection but the source was not clear part of the evaluation also included a CAT scan of the abdomen and pelvis without contrast no acute intra-abdominal pathology was found but showed patchy airspace disease in the right middle lobe consistent with pneumonia. He also show acute kidney injury, serum creatinine is 1.5 patientI have no chronic kidney disease. The CRP was 165 consistent with acute inhibitory response the arterial blood gas on room air showed pH 7.5 , PCO2 30.5, PO2 65 this is consistent with respiratory alkalosis Hospital Course Hospital Course: Patient was admitted for the management of right middle lobe pneumonia associated with acute kidney injury, was treated with IV antibiotic Levaquin and cefepime empirically, also had IV fluids. Kidney function was normalized, patient felt better improved, before admission he was anorexic he lost his appetite, his appetite has improved with antibiotic therapy. Physical Exam Vital Signs: Temp Pulse Resp BP Pulse Ox 98.3 F 54 L 18 114/45 L 97 02/22/18 11:45 02/22/18 11:45 02/22/18 11:45 02/22/18 11:45 02/22/18 11:45 Intake & Output 02/21/18 02/22/18 02/23/18 06:59 06:59 06:59 Intake Total 3753 5061 Output Total 200 450 Balance 3553 4611 Weight 93.9 kg 94.3 kg General appearance: PRESENT: no acute distress, well-developed, well-nourished Head exam: PRESENT: atraumatic, normocephalic Eye exam: PRESENT: conjunctiva pink, EOMI, PERRLA Ear exam: PRESENT: normal external ear exam Mouth exam: PRESENT: moist, tongue midline Neck exam: PRESENT: full ROM Respiratory exam: PRESENT: clear to auscultation carina Cardiovascular exam: PRESENT: RRR, +S1, +S2 Pulses: PRESENT: normal dorsalis pedis pul, +2 pedal pulses bilateral Vascular exam: PRESENT: normal capillary refill GI/Abdominal exam: PRESENT: normal bowel sounds, soft Rectal exam: PRESENT: deferred Neurological exam: PRESENT: alert, awake, oriented to person, oriented to place , oriented to time, oriented to situation, CN II-XII grossly intact Psychiatric exam: PRESENT: appropriate affect, normal mood Skin exam: PRESENT: dry, intact, warm Results Laboratory Results: 02/22/18 04:53 02/22/18 04:53 02/22/18 02/22/18 04:53 04:53 WBC 5.9 RBC 3.68 L Hgb 11.4 L Hct 33.6 L MCV 91 MCH 31.1 MCHC 34.0 RDW 14.8 H Plt Count 206 Seg Neutrophils % 65.1 Lymphocytes % 19.2 Monocytes % 13.8 H Eosinophils % 1.3 Basophils % 0.6 Absolute Neutrophils 3.9 Absolute Lymphocytes 1.1 Absolute Monocytes 0.8 Absolute Eosinophils 0.1 Absolute Basophils 0.0 Sodium 138.7 Potassium 3.6 Chloride 107 Carbon Dioxide 22 Anion Gap 10 BUN 29 H Creatinine 1.06 Est GFR ( Amer) > 60 Est GFR (Non-Af Amer) > 60 Glucose 46 L Calcium 8.0 L Total Bilirubin 0.5 AST 44 ALT 40 Alkaline Phosphatase 61 Total Protein 5.2 L Albumin 2.8 L 02/20/18 13:26 Clean Catch Midstream Urine Culture - Final 6,000 col/ml 02/20/18 02/20/18 16:40 16:40 Creatine Kinase 61 CK-MB (CK-2) 0.31 Troponin I 0.013 NT-Pro-B Natriuret Pep 506 H Impressions: Abdomen/Pelvis CT 02/20/18 00:00 IMPRESSION: 1. No acute findings in the abdomen or pelvis 2. Right middle lobe pneumonia. Chest X-Ray 02/20/18 00:00 IMPRESSION: 1 Patchy airspace disease in the right upper lobe, suggest pneumonic infiltrate. Correlation and follow-up examination to document for interval resolution. Qualifiers - * PATIENT BEING DISCHARGED WITH ANY OF THE FOLLOWING DIAGNOSIS: No
== END 2018-02-22 15:15 | disposition home or self-care (01) | DRG 871 ==
LOC: II 10:22 → 5 10:25
PROVIDERS: ADMIT Internal Medicine; ATTEND Internal Medicine
DX: A41.9 Sepsis, unspecified organism (principal); J18.9 Pneumonia, unspecified organism; G93.41 Metabolic encephalopathy; N17.9 Acute kidney failure, unspecified; E87.3 Alkalosis; E78.5 Hyperlipidemia, unspecified; I10 Essential (primary) hypertension; E11.9 Type 2 diabetes mellitus without complications; Z79.84 Long term (current) use of oral hypoglycemic drugs; Z79.82 Long term (current) use of aspirin; Z79.899 Other long term (current) drug therapy
CPT/HCPCS: 36415; 36600; 71046; 74176; 80048; 80053; 80076; 81001; 82550; 82553; 82803; 82962; 83036; 83880; 84484; 85025; 85027; 85652; 86140; 87040; 87086; 93005; 93010; J0692; J1644; J1956; J3490; J7030

== ENCOUNTER → 2019-01-08 | Outpatient (CLI) | payer MEDICARE, BC, OTHER ==
--- NOTE | 2019-01-08 19:54 | XCELERA REPORT ---
[address] [place] [facility] [address] Lower Extremity Venous Evaluation Procedure: Color flow and duplex imaging of the veins of the right lower extremity as well as the left Common Femoral vein. Right Sided Venous Evaluation Normal vessel filling wall to wall, compression and augmentation as well as Colour flow down to the infrageniculate veins. Left Sided Venous Evaluation The left common femoral vein is fully compressible. Spontaneous and phasic flow is present in the left common femoral vein. Interpretation Summary No duplex evidence of DVT or obstruction in the right lower extremity nor in the left Common Femoral vein. Name: TEO BUTLER Age: 78 yrs Gender: Male : 1940 Patient Status: Outpatient Patient Location: Study Date: 01/08/2019 02:45 PM Reason For Study: RLE SWELLING Ordering Physician: ASHLYN HEAD Performed By: Jami Gil : ASHLYN HEAD > Porter Muhammad
== END ==
LOC: SP 13:53
PROVIDERS: ATTEND Internal Medicine
DX: R22.41 Localized swelling, mass and lump, right lower limb (principal)
CPT/HCPCS: 93971

== ENCOUNTER 2020-07-01 09:25 | Inpatient (IN) | payer MEDICARE, BC, OTHER ==
[2020-07-01] MEDS ORDERED: ONDANSETRON HCL INJ/PF 4 MG/2 ML SDV IV ONE (10:35)
[2020-07-01] MEDS: NORMAL SALINE 1000 ML 1,000 ML IV PRN ×3 (10:40→20:57)
[2020-07-01 10:52] LABS: HEMATOCRIT 42.9 % (37.9-51.0); HEMOGLOBIN 14.4 g/dL (13.5-17.0); MEAN CORPUSCULAR HEMOGLOBIN 32.5 pg (27.0-33.4); MEAN CORPUSCULAR HGB CONC 33.6 g/dL (32.0-36.0); MEAN CORPUSCULAR VOLUME 97 fl (80-97); RED BLOOD COUNT 4.44 10^6/uL (4.35-5.55); RED CELL DISTRIBUTION WIDTH 15.2 % (11.5-14.0); WHITE BLOOD COUNT 15.1 10^3/uL (4.0-10.5)
--- NOTE | 2020-07-01 10:59 | RADIOLOGY REPORT (SQ) ---
EXAM DESCRIPTION: CHEST SINGLE VIEW IMAGES COMPLETED DATE/TIME: 07/01/2020 10:46 am REASON FOR STUDY: sob COMPARISON: 02/20/2018 EXAM PARAMETERS: NUMBER OF VIEWS: One view. TECHNIQUE: Single frontal radiographic view of the chest acquired. RADIATION DOSE: NA LIMITATIONS: None. FINDINGS: LUNGS AND PLEURA: No opacities, masses or pneumothorax. No pleural effusion. MEDIASTINUM AND HILAR STRUCTURES: No masses. Contour normal. HEART AND VASCULAR STRUCTURES: Heart normal in size. Normal vasculature. BONES: No acute findings. HARDWARE: None in the chest. OTHER: No other significant finding. IMPRESSION: NO ACUTE RADIOGRAPHIC FINDING IN THE CHEST. TECHNICAL DOCUMENTATION: JOB ID: [id number] 2010 [employer] All Rights Reserved Reading location - IP/workstation name: [email or web address]
[2020-07-01 11:10] LABS: ALBUMIN 3.7 g/dL (3.5-5.0); ALKALINE PHOSPHATASE 210 U/L (38-126); ANION GAP 12 (5-19); ASPARTATE AMINO TRANSFERASE 368 U/L (17-59); BILIRUBIN,DIRECT 1.8 mg/dL (0.0-0.4); BILIRUBIN,TOTAL 3.2 mg/dL (0.2-1.3); BLOOD UREA NITROGEN 45 mg/dL (7-20); CALCIUM 9.1 mg/dL (8.4-10.2); CARBON DIOXIDE 22 mmol/L (22-30); CHLORIDE 108 mmol/L (98-107); GLUCOSE 277 mg/dL (75-110); POTASSIUM 3.8 mmol/L (3.6-5.0); TOTAL PROTEIN 6.4 g/dL (6.3-8.2)
[2020-07-01 11:12] LABS: ABSOLUTE LYMPHOCYTES# (MANUAL) 0.5 10^3/uL (0.5-4.7); ABSOLUTE MONOCYTES # (MANUAL) 0.3 10^3/uL (0.1-1.4); BAND NEUTROPHILS % (MANUAL) 6 % (3-5); BASOPHILS % (MANUAL) 0 % (0-2); EOSINOPHILS % (MANUAL) 0 % (0-6); LYMPHOCYTES % (MANUAL) 3 % (13-45); MONOCYTES % (MANUAL) 2 % (3-13); SEGMENTED NEUTROPHILS % (MAN) 89 % (42-78); TOTAL CELLS COUNTED 100
[2020-07-01 11:13] LABS: ANISOCYTOSIS SLIGHT; PLATELET CLUMPS PRESENT; PLATELET COMMENT ADEQUATE
[2020-07-01 11:14] LABS: POIKILOCYTOSIS SLIGHT; POLYCHROMASIA SLIGHT
[2020-07-01 11:15] LABS: OVALOCYTES SLIGHT; PLATELET COUNT 170 10^3/uL (150-450)
--- NOTE | 2020-07-01 12:22 | RADIOLOGY REPORT (SQ) ---
EXAM DESCRIPTION: CT ABD/PELVIS WITH IV ONLY IMAGES COMPLETED DATE/TIME: 07/01/2020 10:51 am REASON FOR STUDY: pain/vomit. Diffuse abdominal pain for 7 days. Previous cholecystectomy. COMPARISON: 02/20/2018 TECHNIQUE: CT scan of the abdomen and pelvis performed using helical scanning technique with dynamic intravenous contrast injection. No oral contrast. Images reviewed with lung, soft tissue, and bone windows. Reconstructed coronal and sagittal MPR images reviewed. Delayed images for evaluation of the urinary system also acquired. All images stored on PACS. All CT scanners at this facility use dose modulation, iterative reconstruction, and/or weight based d osing when appropriate to reduce radiation dose to as low as reasonably achievable (ALARA). [facility]: Dose Right [facility]: CareDose [facility]: Dose Right [facility]: Teradose 4D [facility]: WalletKit CONTRAST TYPE AND DOSE: contrast/concentration: Isovue 350.00 mmol/ml; Total Contrast Delivered: 100 .0 ml; Total Saline Delivered: 72.0 ml RENAL FUNCTION: GFR of 55 today RADIATION DOSE: CT Rad equipment meets quality standard of care and radiation dose reduction techniq ues were employed. CTDIvol: 14.2 - 17.7 mGy. DLP: 1659 mGy-cm.. LIMITATIONS: None. FINDINGS: LOWER CHEST: There is dependent atelectasis at the lung bases. No focal consolidation. M oderate hiatal hernia. Moderate cardiomegaly. No pericardial effusion. LIVER: The liver has normal size and contour. Moderate diffuse hepatic steatosis. No focal hepatic mass. Hepatic and portal veins are patent. No biliary ductal dilation. SPLEEN: Normal size. No focal lesions. PANCREAS: No masses. No significant calcifications. No adjacent inflammation or peripancreatic fluid collections. Pancreatic duct not dilated. GALLBLADDER: Surgically absent. ADRENAL GLANDS: No significant masses or asymmetry. RIGHT KIDNEY AND URETER: No solid masses. No significant calcifications. No hydronephrosis or hyd roureter. LEFT KIDNEY AND URETER: No solid masses. No significant calcifications. No hydronephrosis or hydr oureter. AORTA AND VESSELS: No aneurysm. No dissection. Renal arteries, SMA, celiac without stenosis. RETROPERITONEUM: No retroperitoneal adenopathy, hemorrhage or masses. BOWEL AND PERITONEAL CAVITY: There is extensive colonic diverticulosis without evidence of diverticul itis. No bowel obstruction. No mass. No significant inflammatory change. Small umbilical hernia c ontaining a loop of small bowel. No obstruction. No fluid in the hernia sac. APPENDIX: Normal. PELVIS: No mass. No free fluid. Normal bladder. ABDOMINAL WALL: Small umbilical hernia containing a loop of small bowel. Fat containing left inguina l hernia. 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 No suspicious bon e lesions. OTHER: No other significant finding. IMPRESSION: 1. No acute abnormality in the abdomen or pelvis. 2. Extensive colonic diverticulosis without evidence of diverticulitis. 3. Moderate hepatic steatosis. 4. Moderate hiatal hernia. 5. Small umbilical hernia containing a loop of small bowel. No bowel obstruction. TECHNICAL DOCUMENTATION: JOB ID: [id number] Quality ID # [id number]: Final reports with documentation of one or more dose reduction techniques (e.g., Au tomated exposure control, adjustment of the mA and/or kV according to patient size, use of iterative reconstruction technique) 2010 [employer]- All Rights Reserved Reading location - IP/workstation name: [email or web address]
--- NOTE | 2020-07-01 13:02 | ER Document Report ---
ED General - General Chief Complaint: Nausea/Vomiting Stated Complaint: NAUSEA/FEVER/CHILLS/VOMITING BLOOD Time Seen by Provider: 07/01/20 10:22 Primary Care Provider: ASHLYN HEAD MD [Primary Care Provider] - Follow up as needed Mode of Arrival: Ambulatory Information source: Patient TRAVEL OUTSIDE OF THE [place] IN LAST 30 DAYS: No - HPI Notes: Patient presents from primary care physician's office. Patient states he had diarrhea for the last 24 hours and was able to sleep last night. He denies cough or cold. He has had some mild shortness of breath. No vomiting. He has had some subjective fever and chills. Nothing appear to have made his symptoms worse except for exertion. Nothing made them better. He also complains of weakness and fatigue. Patient symptoms have been constant and moderate in intensity. - Related Data Allergies/Adverse Reactions: No Known Allergies Allergy (Verified 07/01/20 09:56) Home Medications: Atorvastatin. Pioglitazone. Glyburide. Aspirin. Jardiance. Micardis. Carvedilol. pantoprazole. Allopurinol Past Medical History - General Information source: Patient - Social History Smoking Status: Never Smoker Chew tobacco use (# tins/day): No Frequency of alcohol use: None Drug Abuse: None Family History: Reviewed & Not Pertinent - Past Medical History Cardiac Medical History: Reports: Hx Hypercholesterolemia, Hx Hypertension Endocrine Medical History: Reports: Hx Diabetes Mellitus Type 2 - Immunizations Hx Pneumococcal Vaccination: 08/14/12 Review of Systems - Review of Systems Constitutional: Chills, Malaise Cardiovascular: denies: Chest pain, Palpitations Respiratory: Short of breath. denies: Cough -: Yes All other systems reviewed and negative Physical Exam - Vital signs Vitals: Temp Pulse Resp BP Pulse Ox 97.5 F 60 20 83/37 L 96 07/01/20 09:33 07/01/20 09:33 07/01/20 09:33 07/01/20 09:33 07/01/20 09:33 Interpretation: Hypotensive - General General appearance: Appears well, Alert - HEENT Head: Normocephalic, Atraumatic Eyes: Normal Pupils: PERRL - Respiratory Respiratory status: No respiratory distress Chest status: Nontender Breath sounds: Normal Chest palpation: Normal - Cardiovascular Rhythm: Regular Heart sounds: Normal auscultation Murmur: No - Abdominal Inspection: Normal Distension: No distension Bowel sounds: Normal Tenderness: Nontender Organomegaly: No organomegaly - Back Back: Normal, Nontender - Extremities General upper extremity: Normal inspection, Nontender, Normal color, Normal ROM, Normal temperature General lower extremity: Normal inspection, Nontender, Normal color, Normal ROM, Normal temperature, Normal weight bearing. No: Willian's sign - Neurological Neuro grossly intact: Yes Cognition: Normal Orientation: AAOx4 [place] Coma Scale Eye Opening: Spontaneous [place] Coma Scale Verbal: Oriented [place] Coma Scale Motor: Obeys Commands [place] Coma Scale Total: 15 Speech: Normal Motor strength normal: LUE, RUE, LLE, RLE Sensory: Normal - Psychological Associated symptoms: Normal affect, Normal mood - Skin Skin Temperature: Warm Skin Moisture: Dry Skin Color: Normal Course - Re-evaluation Re-evalutation: 07/01/20 13:03 Patient referred to emergency department with complaints of diarrhea weakness and fatigue. He does have a clinical picture consistent with a viral syndrome that includes elevated liver function test. Covid definitely remains a possibility. A Covid test is currently pending. Patient will be admitted to Dr. Head for management of weakness, hypotension and persistent diarrhea. - Vital Signs Vital signs: Temp Pulse Resp BP Pulse Ox 98.2 F 60 19 107/50 L 96 07/01/20 10:28 07/01/20 09:33 07/01/20 10:40 07/01/20 10:40 07/01/20 10:40 - Laboratory Result Diagrams: 07/01/20 10:29 07/01/20 10:29 Laboratory results interpreted by me: 07/01/20 07/01/20 10:29 10:29 WBC 15.1 H RDW 15.2 H Seg Neuts % (Manual) 89 H Band Neutrophils % 6 H Lymphocytes % (Manual) 3 L Monocytes % (Manual) 2 L Abs Neuts (Manual) 14.3 H Chloride 108 H BUN 45 H Est GFR (MDRD) Non-Af 56 L Glucose 277 H Total Bilirubin 3.2 H Direct Bilirubin 1.8 H AST 368 H ALT 318 H Alkaline Phosphatase 210 H - Diagnostic Test Radiology reviewed: Image reviewed, Reports reviewed Discharge - Discharge Clinical Impression: Suspected COVID-19 virus infection, Hepatitis Hypotension Qualifiers: Hypotension type: unspecified hypotension type Qualified Code(s): I95.9 - Hypotension, unspecified Diarrhea Qualifiers: Diarrhea type: unspecified type Qualified Code(s): R19.7 - Diarrhea, u nspecified Condition: Fair Disposition: ADMITTED INPATIENT Admitting Provider: Jame Unit Admitted: [facility] Referrals: ASHLYN HEAD MD [Primary Care Provider] - Follow up as needed
[2020-07-01 13:41] LABS: APPEARANCE,URINE CLEAR; BILIRUBIN,URINE NEGATIVE (NEGATIVE); COLOR,URINE YELLOW; GLUCOSE, URINE >=500 mg/dL (NEGATIVE); KETONES,URINE NEGATIVE (NEGATIVE); LEUKOCYTE ESTERASE,URINE NEGATIVE (NEGATIVE); NITRITE,URINE NEGATIVE (NEGATIVE); PROTEIN,URINE NEGATIVE (NEGATIVE); URINE SPECIFIC GRAVITY 1.043
[2020-07-01] MEDS ORDERED: ACETAMINOPHEN 325 MG TABLET PO PRN (18:34)
[2020-07-01] MEDS ORDERED: GLUCAGON,HUMAN RECOMB 1 MG INJ IM PRN (18:41)
[2020-07-01] MEDS ORDERED: DEXTROSE 40% GEL 15 GM TUBE PO PRN ×2 (18:41)
[2020-07-01] MEDS ORDERED: DEXTROSE 50%-WATER 25 GM/50 ML DISP.SYRIN IV PRN ×2 (18:41)
--- NOTE | 2020-07-01 18:41 | PDOC H&P ---
History of Present Illness Admission Date/PCP: 07/01/20 14:47 ASHLYN HEAD MD History of Present Illness: TEO BUTLER is a 79 year old male He came to the office for evaluation of nonspecific symptoms, fever, chills, diarrhea, generalized body aches and pain, he was exposed to someone with SARS-CoV-2 infection but he said he had a facemask on, SARS-CoV-2 infection was suspected based on his presentation, he was referred emergency room for evaluation.He also complained of diffuse abdominal pain, in the emergency room a CAT scan of the abdomen and pelvis with contrast was obtained demonstrated dependent atelectasis at the lung bases. No focal consolidation was found there was moderate hiatal hernia. The liver was normal in size and contour there was moderate diffuse hepatic steatosis. No focal hepatic mass was found also found was extensive colonic diverticulosis wit hout evidence of diverticulitis, Past Medical History Cardiac Medical History: Reports: Hyperlipidema, Hypertension Endocrine Medical History: Reports: Diabetes Mellitus Type 2 Musculoskeltal Medical History: Reports: None, Arthritis Social History Smoking Status: Never Smoker Electronic Cigarette use?: No Frequency of Alcohol Use: Occasional Hx Recreational Drug Use: No Drugs: None Hx Prescription Drug Abuse: No Family History Family History: Reviewed & Not Pertinent Parental Family History Reviewed: Yes Children Family History Reviewed: Yes Sibling(s) Family History Reviewed.: Yes Medication/Allergy Home Medications: RX: Allopurinol [Zyloprim 300 mg Tablet] 300 mg PO DAILY 02/20/18 RX: Aspirin [Aspirin 81 mg Chewable Tablet] 81 mg PO DAILY 02/20/18 RX: Atorvastatin Calcium [Lipitor 80 mg Tablet] 80 mg PO QHS 02/20/18 RX: Carvedilol [Coreg 25 mg Tablet] 25 mg PO Q12 02/20/18 RX: Glyburide/Metformin HCl [Glyburide-Metformin 2.5-500 mg] 1 tab PO WSUPPER 02/20/18 RX: Pantoprazole Sodium [Protonix] 40 mg PO DAILY 02/20/18 RX: Pioglitazone HCl [Actos 15 mg Tablet] 15 mg PO DAILY 02/20/18 Empagliflozin [Jardiance] 25 mg PO DAILY 07/01/20 Telmisartan/Hydrochlorothiazid [Telmisartan-Hctz 80-12.5 mg Tb] 1 each PO DAILY 07/01/20 Allergies/Adverse Reactions: No Known Allergies Allergy (Verified 07/01/20 09:56) Review of Systems Constitutional: PRESENT: fatigue, fever(s), weakness Eyes: ABSENT: visual disturbances Ears: ABSENT: hearing changes Cardiovascular: ABSENT: chest pain, dyspnea on exertion, edema, orthropnea, palpitations Respiratory: ABSENT: cough, hemoptysis Gastrointestinal: PRESENT: diarrhea, nausea. ABSENT: abdominal pain, constipation, hematemesis, hematochezia, vomiting Genitourinary: ABSENT: dysuria, hematuria Musculoskeletal: PRESENT: back pain. ABSENT: joint swelling Integumentary: ABSENT: rash, wounds Neurological: ABSENT: abnormal gait, abnormal speech, confusion, dizziness, focal weakness, syncope Psychiatric: ABSENT: anxiety, depression, homidical ideation, suicidal ideation Endocrine: ABSENT: cold intolerance, heat intolerance, menstrual abnormalities, polydipsia, polyuria Hematologic/Lymphatic: ABSENT: easy bleeding, easy bruising, lymphadenopathy Physical Exam Vital Signs: Temp Pulse Resp BP Pulse Ox 98.4 F 68 22 H 118/42 L 98 07/01/20 15:55 07/01/20 16:03 07/01/20 15:55 07/01/20 15:55 07/01/20 15:55 Intake & Output 06/30/20 07/01/20 07/02/20 06:59 06:59 06:59 Intake Total 600 Balance 600 Weight 92.1 kg General appearance: PRESENT: no acute distress Head exam: PRESENT: atraumatic, normocephalic Eye exam: PRESENT: conjunctiva pink, EOMI, PERRLA Ear exam: PRESENT: normal external ear exam Mouth exam: PRESENT: moist, tongue midline Neck exam: PRESENT: full ROM Respiratory exam: PRESENT: clear to auscultation carina Cardiovascular exam: PRESENT: RRR, +S1, +S2 Pulses: PRESENT: normal dorsalis pedis pul, +2 pedal pulses bilateral Vascular exam: PRESENT: normal capillary refill GI/Abdominal exam: PRESENT: normal bowel sounds, soft Rectal exam: PRESENT: deferred Neurological exam: PRESENT: alert, CN II-XII grossly intact Psychiatric exam: PRESENT: appropriate affect, normal mood Skin exam: PRESENT: dry, intact, warm Results Laboratory Results: 07/01/20 10:29 07/01/20 10:29 10/07/01/20 07/01/20 10:29 10:29 13:15 WBC 15.1 H RBC 4.44 Hgb 14.4 Hct 42.9 MCV 97 MCH 32.5 MCHC 33.6 RDW 15.2 H Plt Count 170 Seg Neutrophils % Not Reportable Sodium 142.1 Potassium 3.8 Chloride 108 H Carbon Dioxide 22 Anion Gap 12 BUN 45 H Creatinine 1.24 Est GFR ( Amer) > 60 Glucose 277 H Calcium 9.1 Total Bilirubin 3.2 H AST 368 H Alkaline Phosphatase 210 H Total Protein 6.4 Albumin 3.7 Lipase 125.2 Urine Color YELLOW Urine Appearance CLEAR Urine pH 5.0 Ur Specific [place] 1.043 Urine Protein NEGATIVE Urine Glucose (UA) >=500 H Urine Ketones NEGATIVE Urine Blood NEGATIVE Urine Nitrite NEGATIVE Ur Leukocyte Esterase NEGATIVE Urine WBC (Auto) 0 Impressions: Chest X-Ray 07/01/20 09:56 IMPRESSION: NO ACUTE RADIOGRAPHIC FINDING IN THE CHEST. Abdomen/Pelvis CT 07/01/20 10:36 IMPRESSION: 1. No acute abnormality in the abdomen or pelvis. 2. Extensive colonic diverticulosis without evidence of diverticulitis. 3. Moderate hepatic steatosis. 4. Moderate hiatal hernia. 5. Small umbilical hernia containing a loop of small bowel. No bowel ob struction. Assessment & Plan - Diagnosis (1) Cholestasis Is this a current diagnosis for this admission?: Yes Plan: There is grossly abnormal liver enzymes, the pattern is consistent with cholestasis, the CT scan of the abdomen and pelvis with IV contrast was negative for any obstructive liver disease (2) Suspected COVID-19 virus infection Is this a current diagnosis for this admission?: Yes Plan: Patient with suspected SARS-CoV-2 infection, he has grossly abnormal liver enzymes, the CRP was elevated suggesting inflammation there was leukocytosis, WBC 15,000. Patient is admitted to the hospital he will be empirically treated for SARS-CoV-2 infection with dexamethasone 6 mg IV daily with not initiate remdesivir at this time because the infection is not confirmed yet. (3) Type 2 diabetes mellitus with diabetic polyneuropathy Qualifiers: Diabetes mellitus middle or intermediate school principal insulin use: without middle or intermediate school principal use Qualified Code(s): E11.42 - Type 2 diabetes mellitus with diabetic polyneuropathy Is this a current diagnosis for this admission?: Yes Plan: He has type 2 diabetes mellitus, he will continue his regular medication for diabetes, hyperglycemia is anticipated because of the use of intravenous dexamethasone - Time Time Spent: Greater than 70 Minutes Smoking Cessation Education: over 10 minutes Medications reviewed and adjusted accordingly: Yes Anticipated Discharge Disposition: Home, Self Care Anticipated Discharge Timeframe: within 72 hours - Inpatient Certification Based on my medical assessment, after consideration of the patient's comorbidities, presenting symptoms, or acuity I expect that the services needed warrant INPATIENT care.: Yes I certify that my determination is in accordance with my understanding of Medicare's requirements for reasonable and necessary INPATIENT services [42 CFR 412.3e].: Yes
[2020-07-01 19:25] LABS: ARTERIAL BLOOD BASE EXCESS 0.2 mmol/L; ARTERIAL BLOOD FIO2 ROOM AIR; ARTERIAL BLOOD HCO3 24.1 mmol/L (20-24); ARTERIAL BLOOD O2 SATURATION 95.8 % (94-98); ARTERIAL BLOOD PCO2 36.4 mmHg (35-45); ARTERIAL BLOOD PH 7.44 (7.35-7.45); ARTERIAL BLOOD PO2 76.5 mmHg (80-100); ARTERIAL BLOOD TOTAL CO2 25.2 mmol/L (23-27)
[2020-07-01 19:35] LABS: A TYPE INFLUENZA AG NEGATIVE (NEGATIVE); B INFLUENZA AG NEGATIVE (NEGATIVE)
[2020-07-01 19:44] LABS: FIBRINOGEN 499 mg/dL (209-497); INTERNATIONAL RATION (INR) 1.12; PARTIAL THROMBOPLASTIN TIME 31.8 SEC (23.5-35.8); PROTHROMBIN TIME 14.6 SEC (11.4-15.4)
[2020-07-01 19:47] LABS: D-DIMER 2.08 ug/mL (0.00-0.50)
[2020-07-01 20:00] LABS: C-REACTIVE PROTEIN 67.9 mg/L (<10.0)
[2020-07-01] MEDS: ZINC SULFATE 220 MG CAPSULE PO SCH (20:42)
[2020-07-01] MEDS: CHOLECALCIFEROL (D3) 1,000 UNIT (25 MCG) TABLET PO SCH (20:42)
[2020-07-01] MEDS: ENOXAPARIN SODIUM INJ 40 MG/0.4 ML DISP.SYRIN SUBCUT SCH (20:43)
[2020-07-01] MEDS: DEXAMETHASONE SOD PHOS INJ 10 MG/1 ML VIAL IV SCH (20:43)
[2020-07-01] MEDS: INSULIN LISPRO 100 UNIT/ML 3 ML VIAL SUBCUT SCH (22:30)
[2020-07-01] MEDS: FAMOTIDINE 20 MG TABLET PO SCH (23:26)
[2020-07-02] MEDS: NORMAL SALINE 1000 ML 1,000 ML IV PRN ×2 (03:03→20:15)
[2020-07-02 05:43] LABS: ABSOLUTE LYMPHOCYTES (AUTO) 0.7 10^3/uL (0.5-4.7); ABSOLUTE MONOCYTES (AUTO) 0.1 10^3/uL (0.1-1.4); BASOPHILS % (AUTO) 0.1 % (0-2); HEMATOCRIT 38.4 % (37.9-51.0); HEMOGLOBIN 12.8 g/dL (13.5-17.0); LYMPHOCYTES % (AUTO) 7.3 % (13-45); MEAN CORPUSCULAR HEMOGLOBIN 32.5 pg (27.0-33.4); MEAN CORPUSCULAR HGB CONC 33.4 g/dL (32.0-36.0); MEAN CORPUSCULAR VOLUME 97 fl (80-97); MONOCYTES % (AUTO) 1.4 % (3-13); PLATELET COUNT 136 10^3/uL (150-450); RED BLOOD COUNT 3.96 10^6/uL (4.35-5.55); RED CELL DISTRIBUTION WIDTH 15.1 % (11.5-14.0); SEGMENTED NEUTROPHILS % (AUTO) 91.2 % (42-78); TOTAL CELLS COUNTED % (AUTO) 100 %; WHITE BLOOD COUNT 9.8 10^3/uL (4.0-10.5)
[2020-07-02 06:03] LABS: ALBUMIN 3.2 g/dL (3.5-5.0); ALKALINE PHOSPHATASE 163 U/L (38-126); ANION GAP 12 (5-19); ASPARTATE AMINO TRANSFERASE 127 U/L (17-59); BILIRUBIN,DIRECT 0.5 mg/dL (0.0-0.4); BILIRUBIN,TOTAL 1.4 mg/dL (0.2-1.3); BLOOD UREA NITROGEN 43 mg/dL (7-20); CALCIUM 8.1 mg/dL (8.4-10.2); CARBON DIOXIDE 20 mmol/L (22-30); CHLORIDE 105 mmol/L (98-107); CREATINE KINASE 103 U/L (55-170); GLUCOSE 205 mg/dL (75-110); POTASSIUM 4.3 mmol/L (3.6-5.0); TOTAL PROTEIN 5.5 g/dL (6.3-8.2)
--- NOTE | 2020-07-02 07:33 | EKG REPORT ---
SEVERITY:- OTHERWISE NORMAL ECG - SINUS RHYTHM ATRIAL PREMATURE COMPLEX LOW VOLTAGE IN FRONTAL LEADS : Confirmed by: Brendon Garcias MD 02-Jul-2020 07:32:38
[2020-07-02] MEDS: INSULIN LISPRO 100 UNIT/ML 3 ML VIAL SUBCUT SCH ×4 (08:29→22:05)
[2020-07-02] MEDS: CHOLECALCIFEROL (D3) 1,000 UNIT (25 MCG) TABLET PO SCH (09:09)
[2020-07-02] MEDS: ZINC SULFATE 220 MG CAPSULE PO SCH (09:10)
[2020-07-02] MEDS: FAMOTIDINE 20 MG TABLET PO SCH ×2 (09:10→22:04)
[2020-07-02] MEDS: ENOXAPARIN SODIUM INJ 40 MG/0.4 ML DISP.SYRIN SUBCUT SCH (09:10)
[2020-07-02] MEDS: DEXAMETHASONE SOD PHOS INJ 10 MG/1 ML VIAL IV SCH (09:10)
--- NOTE | 2020-07-02 16:20 | PDOC PROGRESS REPORT ---
Subjective Progress Note for:: 07/02/20 Subjective:: Patient seen by the bedside, he was admitted yesterday for suspected SARS-CoV-2 infection, he has no new complaints today, seem to be responding to treatment, results of SARS-CoV-2 test pending Reason For Visit: SUSPECT COVID ABNORMAL LFT Physical Exam Vital Signs: Temp Pulse Resp BP Pulse Ox 98.0 F 50 L 18 109/47 L 96 07/02/20 15:09 07/02/20 15:09 07/02/20 15:09 07/02/20 15:09 07/02/20 15:09 Intake & Output 07/01/20 07/02/20 07/03/20 06:59 06:59 06:59 Intake Total 2882 Output Total 225 Balance 2657 Weight 93.7 kg General appearance: PRESENT: no acute distress Eye exam: PRESENT: PERRLA Respiratory exam: PRESENT: clear to auscultation carina Cardiovascular exam: PRESENT: +S1, +S2 GI/Abdominal exam: PRESENT: soft Neurological exam: PRESENT: alert Results Laboratory Results: 07/02/20 04:50 07/02/20 04:50 07/01/20 07/01/20 07/02/20 18:35 19:10 04:50 WBC 9.8 RBC 3.96 L Hgb 12.8 L Hct 38.4 MCV 97 MCH 32.5 MCHC 33.4 RDW 15.1 H Plt Count 136 L Seg Neutrophils % 91.2 H Carbonic Acid 1.10 HCO3/H2CO3 Ratio 21:1 ABG pH 7.44 ABG pCO2 36.4 ABG pO2 76.5 L ABG HCO3 24.1 H ABG O2 Saturation 95.8 ABG Base Excess 0.2 FiO2 ROOM AIR Sodium Potassium Chloride Carbon Dioxide Anion Gap BUN Creatinine Est GFR ( Amer) Glucose Calcium Ferritin 110.00 Total Bilirubin AST Alkaline Phosphatase C-Reactive Protein 67.9 H Total Protein Albumin 07/02/20 04:50 WBC RBC Hgb Hct MCV MCH MCHC RDW Plt Count Seg Neutrophils % Carbonic Acid HCO3/H2CO3 Ratio ABG pH ABG pCO2 ABG pO2 ABG HCO3 ABG O2 Saturation ABG Base Excess FiO2 Sodium 136.8 L Potassium 4.3 Chloride 105 Carbon Dioxide 20 L Anion Gap 12 BUN 43 H Creatinine 1.13 Est GFR ( Amer) > 60 Glucose 205 H Calcium 8.1 L Ferritin Total Bilirubin 1.4 H AST 127 H Alkaline Phosphatase 163 H C-Reactive Protein Total Protein 5.5 L Albumin 3.2 L 07/01/20 07/02/20 19:10 04:50 Creatine Kinase 103 Troponin I 0.019 Impressions: Chest X-Ray 07/01/20 09:56 IMPRESSION: NO ACUTE RADIOGRAPHIC FINDING IN THE CHEST. Abdomen/Pelvis CT 07/01/20 10:36 IMPRESSION: 1. No acute abnormality in the abdomen or pelvis. 2. Extensive colonic diverticulosis without evidence of diverticulitis. 3. Moderate hepatic steatosis. 4. Moderate hiatal hernia. 5. Small umbilical hernia containing a loop of small bowel. No bowel obstruction. Assessment & Plan - Diagnosis (1) Cholestasis Is this a current diagnosis for this admission?: Yes Plan: The liver function test is improving, there is a decrease in the liver enzymes (2) Suspected COVID-19 virus infection Is this a current diagnosis for this admission?: Yes Plan: Continue intravenous dexamethasone and other treatment (3) Type 2 diabetes mellitus with diabetic polyneuropathy Qualifiers: Diabetes mellitus senior care insulin use: without assistant terminal manager use Qualified Code(s): E11.42 - Type 2 diabetes mellitus with diabetic polyneuropathy Is this a current diagnosis for this admission?: Yes - Time Time Spent with patient: 25-34 minutes Level of Care: IMCU Medications reviewed and adjusted accordingly: Yes Anticipated discharge: Home Anticipated DC Timeframe: within 72 hours
[2020-07-02] MEDS ORDERED: GLYBURIDE PO SCH (17:00)
[2020-07-02] MEDS ORDERED: METFORMIN HCL PO SCH (17:00)
[2020-07-02] MEDS: PANTOPRAZOLE SODIUM 40 MG TABLET.DR PO SCH (18:35)
[2020-07-02] MEDS: ALLOPURINOL 300 MG TABLET PO SCH (18:35)
[2020-07-02] MEDS: METFORMIN HCL 500 MG TABLET PO SCH (18:35)
[2020-07-02] MEDS: PIOGLITAZONE HCL 15 MG TABLET PO SCH (18:35)
[2020-07-02] MEDS: GLYBURIDE 2.5 MG TABLET PO SCH (18:35)
[2020-07-02] MEDS: CARVEDILOL 12.5 MG TABLET PO SCH (23:00)
[2020-07-03 05:20] LABS: ABSOLUTE MONOCYTES (AUTO) 0.7 10^3/uL (0.1-1.4); ABSOLUTE NEUT (AUTO) 8.7 10^3/uL (1.7-8.2); BASOPHILS % (AUTO) 0.1 % (0-2); HEMATOCRIT 38.1 % (37.9-51.0); LYMPHOCYTES % (AUTO) 9.3 % (13-45); MEAN CORPUSCULAR HEMOGLOBIN 32.7 pg (27.0-33.4); MEAN CORPUSCULAR VOLUME 96 fl (80-97); MONOCYTES % (AUTO) 6.9 % (3-13); PLATELET COUNT 154 10^3/uL (150-450); RED BLOOD COUNT 3.96 10^6/uL (4.35-5.55); RED CELL DISTRIBUTION WIDTH 15.1 % (11.5-14.0); SEGMENTED NEUTROPHILS % (AUTO) 83.7 % (42-78); TOTAL CELLS COUNTED % (AUTO) 100 %; WHITE BLOOD COUNT 10.4 10^3/uL (4.0-10.5)
[2020-07-03] MEDS: NORMAL SALINE 1000 ML 1,000 ML IV PRN (05:25)
[2020-07-03 05:52] LABS: ALBUMIN 3.2 g/dL (3.5-5.0); ALKALINE PHOSPHATASE 145 U/L (38-126); ANION GAP 10 (5-19); ASPARTATE AMINO TRANSFERASE 46 U/L (17-59); BILIRUBIN,DIRECT 0.2 mg/dL (0.0-0.4); BILIRUBIN,TOTAL 0.6 mg/dL (0.2-1.3); BLOOD UREA NITROGEN 45 mg/dL (7-20); CALCIUM 8.5 mg/dL (8.4-10.2); CARBON DIOXIDE 18 mmol/L (22-30); CHLORIDE 110 mmol/L (98-107); CREATINE KINASE 56 U/L (55-170); GLUCOSE 163 mg/dL (75-110); POTASSIUM 4.4 mmol/L (3.6-5.0); TOTAL PROTEIN 5.8 g/dL (6.3-8.2)
[2020-07-03] MEDS: INSULIN LISPRO 100 UNIT/ML 3 ML VIAL SUBCUT SCH ×3 (07:46→17:59)
[2020-07-03] MEDS: PANTOPRAZOLE SODIUM 40 MG TABLET.DR PO SCH (09:21)
[2020-07-03] MEDS: CHOLECALCIFEROL (D3) 1,000 UNIT (25 MCG) TABLET PO SCH (09:21)
[2020-07-03] MEDS: ZINC SULFATE 220 MG CAPSULE PO SCH (09:21)
[2020-07-03] MEDS: FAMOTIDINE 20 MG TABLET PO SCH (09:21)
[2020-07-03] MEDS: ALLOPURINOL 300 MG TABLET PO SCH (09:21)
[2020-07-03] MEDS: PIOGLITAZONE HCL 15 MG TABLET PO SCH (09:21)
[2020-07-03] MEDS: CARVEDILOL 12.5 MG TABLET PO SCH (09:23)
[2020-07-03] MEDS: ENOXAPARIN SODIUM INJ 40 MG/0.4 ML DISP.SYRIN SUBCUT SCH (09:25)
[2020-07-03 16:07] LABS: ALBUMIN 3.5 g/dL (3.5-5.0); ALKALINE PHOSPHATASE 142 U/L (38-126); ANION GAP 11 (5-19); ASPARTATE AMINO TRANSFERASE 35 U/L (17-59); BILIRUBIN,DIRECT 0.2 mg/dL (0.0-0.4); BILIRUBIN,TOTAL 0.6 mg/dL (0.2-1.3); BLOOD UREA NITROGEN 37 mg/dL (7-20); CALCIUM 8.8 mg/dL (8.4-10.2); CARBON DIOXIDE 20 mmol/L (22-30); CHLORIDE 107 mmol/L (98-107); GLUCOSE 188 mg/dL (75-110); POTASSIUM 4.3 mmol/L (3.6-5.0); TOTAL PROTEIN 5.8 g/dL (6.3-8.2)
[2020-07-03] MEDS: GLYBURIDE 2.5 MG TABLET PO SCH (17:58)
[2020-07-03] MEDS: METFORMIN HCL 500 MG TABLET PO SCH (17:59)
[2020-07-03 18:25] VITALS: BP 83/37
--- NOTE | 2020-07-03 20:32 | PDOC DISCHARGE SUMMARY ---
Impression - Admit/DC Date/PCP Admission Date/Primary Care Provider: 07/01/20 14:47 ASHLYN HEAD MD Discharge Date: 07/03/20 - Discharge Diagnosis (1) Cholestasis Is this a current diagnosis for this admission?: Yes (2) Type 2 diabetes mellitus with diabetic polyneuropathy Is this a current diagnosis for this admission?: Yes (3) Viral syndrome Is this a current diagnosis for this admission?: Yes - Additional Information Discharge Diet: Diabetic Discharge Activity: Activity As Tolerated, Balance Activity w/Rest Referrals: ASHLYN HEAD MD [Primary Care Provider] - 07/11/20 10:45 am Home Medications: RX: Allopurinol [Zyloprim 300 mg Tablet] 300 mg PO DAILY 02/20/18 RX: Aspirin [Aspirin 81 mg Chewable Tablet] 81 mg PO DAILY 02/20/18 RX: Carvedilol [Coreg 25 mg Tablet] 25 mg PO Q12 02/20/18 RX: Glyburide/Metformin HCl [Glyburide-Metformin 2.5-500 mg] 1 tab PO WSUPPER 02/20/18 RX: Pantoprazole Sodium [Protonix] 40 mg PO DAILY 02/20/18 RX: Pioglitazone HCl [Actos 15 mg Tablet] 15 mg PO DAILY 02/20/18 RX: Empagliflozin [Jardiance] 25 mg PO DAILY 07/01/20 RX: Telmisartan/Hydrochlorothiazid [Telmisartan-Hctz 80-12.5 mg Tb] 1 each PO DAILY 07/01/20 RX: Atorvastatin Calcium [Lipitor 80 mg Tablet] 40 mg PO QHS #0 07/03/20 History of Present Illiness History of Present Illness: TEO BUTLER is a 79 year old male He came to the office for evaluation of nonspecific symptoms, fever, chills, diarrhea, generalized body aches and pain, he was exposed to someone with SARS-CoV-2 infection but he said he had a face mask on, SARS-CoV-2 infection was suspected based on his presentation, he was referred emergency room for evaluation.He also complained of diffuse abdominal pain, in the emergency room a CAT scan of the abdomen and pelvis with contrast was obtained demonstrated dependent atelectasis at the lung bases. No focal consolidation was found there was moderate hiatal hernia. The liver was normal in size and contour there was moderate diffuse hepatic steatosis. No focal hepatic mass was found also found was extensive colonic diverticulosis without evidence of diverticulitis, Hospital Course Hospital Course: Patient was admitted for the management of suspected SARS-CoV-2 infection, he had, leukocytosis, elevated CRP, elevated liver enzymes consistent with cholestasis he has no pneumonia, ER GI symptoms, ED was treated empirically with IV dexamethasone 6 mg daily. Patient improved both clinically and from laboratory standpoint. SARS-CoV-2 testing was negative. Patient is stable, it was assumed that he probably have an acute viral syndrome. But he does not SARS-CoV-2 infection. Physical Exam Vital Signs: Temp Pulse Resp BP Pulse Ox 98.6 F 43 L 20 83/37 L 94 07/03/20 18:23 07/03/20 18:23 07/03/20 18:23 07/03/20 18:23 07/03/20 18:23 Intake & Output 07/02/20 07/03/20 07/04/20 06:59 06:59 06:59 Intake Total 2882 2500 Output Total 225 325 Balance 2657 2175 Weight 93.7 kg 96.1 kg General appearance: PRESENT: no acute distress Eye exam: PRESENT: PERRLA Respiratory exam: PRESENT: clear to auscultation carina Cardiovascular exam: PRESENT: +S1, +S2 GI/Abdominal exam: PRESENT: soft Neurological exam: PRESENT: alert, CN II-XII grossly intact Results Laboratory Results: WBC 10.4 10^3/uL (4.0-10.5) 07/03/20 04:12 RBC 3.96 10^6/uL (4.35-5.55) L 07/03/20 04:12 Hgb 13.0 g/dL (13.5-17.0) L 07/03/20 04:12 Hct 38.1 % (37.9-51.0) 07/03/20 04:12 MCV 96 fl (80-97) 07/03/20 04:12 MCH 32.7 pg (27.0-33.4) 07/03/20 04:12 MCHC 34.0 g/dL (32.0-36.0) 07/03/20 04:12 RDW 15.1 % (11.5-14.0) H 07/03/20 04:12 Plt Count 154 10^3/uL (150-450) 07/03/20 04:12 Lymph % (Auto) 9.3 % (13-45) L 07/03/20 04:12 Miller % (Auto) 6.9 % (3-13) 07/03/20 04:12 Eos % (Auto) 0.0 % (0-6) 07/03/20 04:12 Baso % (Auto) 0.1 % (0-2) 07/03/20 04:12 Absolute Neuts (auto) 8.7 10^3/uL (1.7-8.2) H 07/03/20 04:12 Absolute Lymphs (auto) 1.0 10^3/uL (0.5-4.7) 07/03/20 04:12 Absolute Monos (auto) 0.7 10^3/uL (0.1-1.4) 07/03/20 04:12 Absolute Eos (auto) 0.0 10^3/uL (0.0-0.6) 07/03/20 04:12 Absolute Basos (auto) 0.0 10^3/uL (0.0-0.2) 07/03/20 04:12 Total Counted 100 07/01/20 10:29 Seg Neutrophils % 83.7 % (42-78) H 07/03/20 04:12 Seg Neuts % (Manual) 89 % (42-78) H 07/01/20 10:29 Band Neutrophils % 6 % (3-5) H 07/01/20 10:29 Lymphocytes % (Manual) 3 % (13-45) L 07/01/20 10:29 Monocytes % (Manual) 2 % (3-13) L 07/01/20 10:29 Eosinophils % (Manual) 0 % (0-6) 07/01/20 10:29 Basophils % (Manual) 0 % (0-2) 07/01/20 10:29 Abs Neuts (Manual) 14.3 10^3/uL (1.7-8.2) H 07/01/20 10:29 Abs Lymphs (Manual) 0.5 10^3/uL (0.5-4.7) 07/01/20 10:29 Abs Monocytes (Manual) 0.3 10^3/uL (0.1-1.4) 07/01/20 10:29 Absolute Eos (Manual) 0.0 10^3/uL (0.0-0.6) 07/01/20 10:29 Abs Basophils (Manual) 0.0 10^3/uL (0.0-0.2) 07/01/20 10:29 Clumped Platelets PRESENT 07/01/20 10: Platelet Comment ADEQUATE 07/01/20 10:29 Polychromasia SLIGHT 07/01/20 10:29 Poikilocytosis SLIGHT 07/01/20 10:29 Anisocytosis SLIGHT 07/01/20 10:29 Ovalocytes SLIGHT 07/01/20 10: PT 14.6 SEC (11.4-15.4) 07/01/20 19:10 INR 1.12 07/01/20 19:10 APTT 31.8 SEC (23.5-35.8) 07/01/20 19:10 Fibrinogen 499 mg/dL (209-497) H 07/01/20 19:10 D-Dimer 2.08 ug/mL (0.00-0.50) H 07/01/20 19:10 Carbonic Acid 1.10 mmol/L (1.05-1.35) 07/01/20 18:35 HCO3/H2CO3 Ratio 21:1 07/01/20 18:35 ABG pH 7.44 (7.35-7.45) 07/01/20 18:35 ABG pCO2 36.4 mmHg (35-45) 07/01/20 18:35 ABG pO2 76.5 mmHg (80-100) L 07/01/20 18:35 ABG HCO3 24.1 mmol/L (20-24) H 07/01/20 18:35 ABG Total CO2 25.2 mmol/L (23-27) 07/01/20 18:35 ABG O2 Saturation 95.8 % (94-98) 07/01/20 18:35 ABG Base Excess 0.2 mmol/L 07/01/20 18:35 FiO2 ROOM AIR 07/01/20 18:35 Sodium 137.5 mmol/L (137-145) 07/03/20 15:24 Potassium 4.3 mmol/L (3.6-5.0) 07/03/20 15:24 Chloride 107 mmol/L (98-107) 07/03/20 15:24 Carbon Dioxide 20 mmol/L (22-30) L 07/03/20 15:24 Anion Gap 11 (5-19) 07/03/20 15:24 BUN 37 mg/dL (7-20) H 07/03/20 15:24 Creatinine 1.31 mg/dL (0.52-1.25) H 07/03/20 15:24 Est GFR ( Amer) > 60 (>60) 07/03/20 15:24 Est GFR (MDRD) Non-Af 53 (>60) L 07/03/20 15:24 Glucose 188 mg/dL (75-110) H 07/03/20 15:24 POC Glucose 168 mg/dL (70-110) H 07/03/20 10:56 Calcium 8.8 mg/dL (8.4-10.2) 07/03/20 15:24 Ferritin 110.00 ng/mL (17.9-464.0) 07/01/20 19:10 Total Bilirubin 0.6 mg/dL (0.2-1.3) 07/03/20 15:24 Direct Bilirubin 0.2 mg/dL (0.0-0.4) 07/03/20 15:24 Neonat Total Bilirubin Not Reportable 07/03/20 15:24 Neonat Direct Bilirubin Not Reportable 07/03/20 15:24 Neonat Indirect Bili Not Reportable 07/03/20 15:24 AST 35 U/L (17-59) 07/03/20 15:24 ALT 116 U/L (<50) H 07/03/20 15:24 Alkaline Phosphatase 142 U/L (38-126) H 07/03/20 15:24 Lactate Dehydrogenase 274 U/L (120-246) H 07/01/20 19:10 Creatine Kinase 56 U/L (55-170) 07/03/20 04:12 Troponin I 0.019 ng/mL 07/01/20 19:10 C-Reactive Protein 67.9 mg/L (<10.0) H 07/01/20 19:10 Total Protein 5.8 g/dL (6.3-8.2) L 07/03/20 15:24 Albumin 3.5 g/dL (3.5-5.0) 07/03/20 15:24 Lipase 125.2 U/L (23-300) 07/01/20 10:29 Urine Color YELLOW 07/01/20 13:15 Urine Appearance CLEAR 07/01/20 13:15 Urine pH 5.0 (5.0-9.0) 07/01/20 13:15 Ur Specific [place] 1.043 07/01/20 13:15 Urine Protein NEGATIVE mg/dL (NEGATIVE) 07/01/20 13:15 Urine Glucose (UA) >=500 mg/dL (NEGATIVE) H 07/01/20 13:15 Urine Ketones NEGATIVE mg/dL (NEGATIVE) 07/01/20 13:15 Urine Blood NEGATIVE (NEGATIVE) 07/01/20 13:15 Urine Nitrite NEGATIVE (NEGATIVE) 07/01/20 13:15 Urine Bilirubin NEGATIVE (NEGATIVE) 07/01/20 13:15 Urine Urobilinogen 2.0 mg/dL (<2.0) H 07/01/20 13:15 Ur Leukocyte Esterase NEGATIVE (NEGATIVE) 07/01/20 13:15 Urine WBC (Auto) 0 /HPF 07/01/20 13:15 Squamous Epi Cells Auto <1 /HPF 07/01/20 13:15 Urine Ascorbic Acid NEGATIVE (NEGATIVE) 07/01/20 13:15 COVID-19 Source See comment 07/01/20 10:47 COVID-19 (CLAY) Not Detected (Not Detect) 07/01/20 10:47 Influenza A (Rapid) NEGATIVE (NEGATIVE) 07/01/20 18:35 Influenza B (Rapid) NEGATIVE (NEGATIVE) 07/01/20 18:35 07/01/20 19:10 Troponin I 0.019 Impressions: Chest X-Ray 07/01/20 09:56 IMPRESSION: NO ACUTE RADIOGRAPHIC FINDING IN THE CHEST. Abdomen/Pelvis CT 07/01/20 10:36 IMPRESSION: 1. No acute abnormality in the abdomen or pelvis. 2. Extensive colonic diverticulosis without evidence of diverticulitis. 3. Moderate hepatic steatosis. 4. Moderate hiatal hernia. 5. Small umbilical hernia containing a loop of small bowel. No bowel obstruction. Stroke Is this a Stroke Patient?: No Acute Heart Failure Is this a Heart Failure Patient?: No
== END 2020-07-03 18:54 | disposition home or self-care (01) | DRG 865 ==
LOC: ER 09:25 → EH 14:47 → 3N 16:02 → 5 07-03 15:35
PROVIDERS: ADMIT Internal Medicine; ATTEND Internal Medicine
DX: B34.9 Viral infection, unspecified (principal); K83.1 Obstruction of bile duct; I10 Essential (primary) hypertension; R94.5 Abnormal results of liver function studies; Z20.828 Contact with and (suspected) exposure to other viral communicable diseases; E78.5 Hyperlipidemia, unspecified; M19.90 Unspecified osteoarthritis, unspecified site; E11.42 Type 2 diabetes mellitus with diabetic polyneuropathy; K44.9 Diaphragmatic hernia without obstruction or gangrene; K57.90 Diverticulosis of intestine, part unspecified, without perforation or abscess without bleeding; Z79.899 Other long term (current) drug therapy; Z79.84 Long term (current) use of oral hypoglycemic drugs
CPT/HCPCS: 36415; 71045; 74177; 80053; 81001; 82550; 82728; 82803; 82962; 83615; 83690; 84484; 85025; 85379; 85384; 85610; 85730; 86140; 87070; 87635; 87804; 93005; 93010; 96361; 96374; 99285; C9803; J1100; J1650; J1815; J2405; J3490; J7030